=== PATIENT | male | born 1955 | race Two or more races ===

== ENCOUNTER 2020-09-30 08:21 | Outpatient (CLI) | payer OTHER | END 2020-09-30 10:00 | disposition home or self-care (01) | LOC: OFIC 805 08:21 | PROVIDERS: ATTEND Otolaryngology Otology & Neurotology | DX: H93.13 Tinnitus, bilateral (principal); H61.22 Impacted cerumen, left ear; H83.3X3 Noise effects on inner ear, bilateral ==